=== PATIENT | female | born 1975 | race Caucasian/White ===

== ENCOUNTER → 2019-07-25 12:51 | Outpatient (CLI) | payer SELFPAY ==
[2019-07-25 14:34] LABS: Ferritin 10 ng/mL (8-252)
== END ==
PROVIDERS: Family Provider Family Medicine; PCP Family Medicine; Referring Provider Internal Medicine Pulmonary Disease; Visit Provider Internal Medicine Pulmonary Disease
DX: G25.81 Restless legs syndrome (principal); G47.10 Hypersomnia, unspecified
CPT/HCPCS: 36415; 82728

== ENCOUNTER → 2019-09-08 14:08 | Outpatient (CLI) | payer SELFPAY ==
--- NOTE | 2019-09-08 14:09 | RAD_ITS ---
STUDY: X-RAY - RIGHT KNEE REASON FOR EXAM: Female, 44 years old. FALL 5 WKS AGO, SWELLING AROUND PATELLA AREA TECHNIQUE: 3 view(s) of the knee. COMPARISON: None. FINDINGS: Normal visualized distal femur. Normal visualized proximal tibia and fibula. Normal proximal tibiofibular articulation. There is no demonstrated fracture. Normal medial femorotibial compartment. Normal lateral femorotibial compartment. Normal patellofemoral articulation. There is no demonstrated joint effusion. Tortuous soft tissue structures above the knee and at the level of posterior calf may indicate varices. Soft tissue swelling along the anterior knee. RAD/Knee 4 or More Views IMPRESSION: No acute fracture or subluxation. Soft tissue swelling along the anterior knee/patella. Electronically Signed: Amna Torres MD at 2:03 EST , Service support ,
== END ==
PROVIDERS: PCP Family Medicine; Referring Provider Physician Assistant; Visit Provider Physician Assistant
DX: M25.561 Pain in right knee (principal)
CPT/HCPCS: 73564

== ENCOUNTER → 2020-04-05 15:15 | Outpatient (CLI) | payer SELFPAY ==
[2020-04-05 15:59] LABS: Ferritin 11 ng/mL (8-252); Iron 106 ug/dL (50-170)
== END ==
PROVIDERS: PCP Family Medicine; Referring Provider Internal Medicine Pulmonary Disease; Visit Provider Internal Medicine Pulmonary Disease
DX: G25.81 Restless legs syndrome (principal); G47.10 Hypersomnia, unspecified
CPT/HCPCS: 36415; 82728; 83540

== ENCOUNTER → 2022-09-08 | Outpatient (CLI) | payer SELFPAY ==
[2022-09-08 11:41] LABS: Ferritin 30 ng/mL (8-252); Iron 108 ug/dL (50-170); Iron Binding Capacity,Total 291 ug/dL (250-450); PERCENT IRON SATURATION 37.1 % (15.0-55.0)
== END | disposition home or self-care (01) ==
PROVIDERS: PCP Family Medicine; Referring Provider Internal Medicine Pulmonary Disease; Visit Provider Internal Medicine Pulmonary Disease
DX: R53.83 Other fatigue (principal)
CPT/HCPCS: 36415; 82728; 83540; 83550

== ENCOUNTER → 2023-04-06 | Outpatient (CLI) | payer SELFPAY ==
[2023-04-06 14:10] LABS: Ferritin 88 ng/mL (8-252)
== END | disposition home or self-care (01) ==
PROVIDERS: PCP Family Medicine; Referring Provider Internal Medicine Pulmonary Disease; Visit Provider Internal Medicine Pulmonary Disease
DX: D50.9 Iron deficiency anemia, unspecified (principal); R15.0 Incomplete defecation; G25.81 Restless legs syndrome
CPT/HCPCS: 36415; 82728

== ENCOUNTER → 2024-10-18 | Outpatient (CLI) | payer SELFPAY ==
[2024-10-18 20:18] LABS: Amphetamine Urine NEGATIVE (<1000 ng/mL); Barbiturate Urine NEGATIVE (< 200 ng/mL); Benzodiazepine Urine NEGATIVE (< 200 ng/mL); Buprenorphine Urine NEGATIVE (< 200 ng/mL); Cocaine Urine NEGATIVE (< 300 ng/mL); Fentanyl, Urine NEGATIVE; Methadone Urine NEGATIVE (< 300 ng/mL); Opiates Urine NEGATIVE (< 300 ng/mL); Oxycodone, Urine NEGATIVE (< 100 ng/mL); PCP Urine NEGATIVE (< 25 ng/mL); THC Urine NEGATIVE (< 50 ng/mL)
== END | disposition home or self-care (01) ==
PROVIDERS: PCP Family Medicine; Referring Provider Internal Medicine Pulmonary Disease; Visit Provider Internal Medicine Pulmonary Disease
DX: G47.10 Hypersomnia, unspecified (principal)
CPT/HCPCS: 80307

== ENCOUNTER 2024-11-28 14:36 | Day surgery (SDC) | payer SELFPAY ==
[2024-11-28] VITALS (7 sets, daily range): BP systolic 106–118; BP diastolic 49–65; PULSE 57–99; RESP 16–18; TEMP 36.2–36.6; O2SAT 93–100; BMI 23.5
--- NOTE | 2024-11-28 14:54 | HP.PCM_ITS ---
HPI - General General Date of Admission: 12/13/24 Date of Service: 11/28/24 Chief Complaint: Heartburn HPI Narrative LUCIA GOVEA, is a 49 F who reports acid reflux for 10-15 years. Feels burning in throat when laying down at night. Also will have acid reflux when bending over. Does not have abdominal pain or burning. States she was dx with JAVNO 1-2 years ago and her cpap exacerbates her symptoms. Swallows alot of air and has intermittent bloating. Reports BM are usually normal but if she swallows too much air she will have loose stools with acid. Has tried OTC Famotidine but states it blocks her calcium absorption. Has been taking OTC supplements including sodium alginate that is somewhat helpful. Has never had scopes. OV 08.29.24 pt reports an improvement in symptoms since previous visit. Pt reports that her CPAP had been leaking and since getting this fixed her bloating has decreased. Pt reports that her nausea will come and go in streaks; pt wonders if this is due to a stomach bug or possibly stress. Pt reports occasion al difficulty swallowing with her pills. Wil, pt state that if she takes a deep breath she can feel liquid going into her lungs. [facility] Medical History Wears contact lenses Depression Anxiety Low iron Back pain Difficulty swallowing History of ulceration Gastric reflux Non-smoker CPAP (continuous positive airway pressure) dependence Cardiology follow-up encounter History of echocardiogram History of irregular heartbeat Acid reflux Restless leg syndrome Home Medications ?Medication ?Instructions ?Recorded ?Last Taken ?Type escitalopram oxalate 20 mg tablet 10 mg PO DAILY 05/29 Unknown History loratadine 10 mg tablet (Allergy 10 mg PO BID PRN jason rgy symptoms 05/29/20 Unknown History Relief (loratadine)) BEET ROOT 2 tab PO DAILY 11/24/24 Unkn own History REACTIVE IRON 29 mg PO DAILY 11/24/24 Unkn own History calcium carbonate (Calcium 600) 1,200 mg PO DAILY 11/09 01/03 Unknown History lysine 1,000 mg tablet 1,000 mg PO DAILY 11/24/24 U nknown History magnesium 200 mg tablet 400 mg PO DAILY 11/24/24 Unk nown History modafinil 100 mg tablet 100 mg PO DAILY PRN SLEEPINE SS 11/24/24 Unknown History multivitamin (Daily Multi-Vitamin 1 tab PO DAILY 11/24 Unknown History tablet) vit D3 50 mcg-vitamin K1 500 1 cap PO DAILY 11/24/24 Unknown History mcg-MK4 1,500 mcg-MK7 180 mcg capsule Allergy/AdvReac Type Severity Reaction Status Date / Time codeine (From Allergy Intermediate n/v, acid Verified 11/24/24 15:44 Tylenol-Codeine) reflux, feels funny adhesive tape Allergy Mild Rash Verified 11/24/24 15:44 Surgical History Hx of vaginal hysterectomy Hx of removal of cyst H/O dilation and curettage Social History Smoking Status: Never smoker alcohol intake: current alcohol intake frequency: a few times a week details: Homemade Ngozi [id number] Constitutional Constitutional: Denies fatigue, fever(s), poor appetite, weight gain or weight loss Gastrointestinal Gastrointestinal: Denies belching, bloating, change in bowel habits, change in stool character, chewing difficulty, coffee ground emesis, constipation, cramping, diarrhea, dyspepsia, dysphagia, early satiety, excessive flatus, fecal incontinence, heartburn, hematemesis, hematochezia, hemorrhoids, loose stools, melena, nausea, odynophagia, rectal bleeding, tenesmus, vomiting or weight changes Physical Exam Const alert, oriented x3, no apparent distress and healthy appearing General Appearance: cooperative GI normal to inspection, nondistended, normoactive bowel sounds, soft to palpation, non-tender and non-distended Percussion: normal to percussion Rectal Exam: deferred Assessment & Plan Assessment/Plan (1) Acid reflux: PLAN: Assessment and Plan Assessment and Plan (1) Gastroesophageal reflux disease: Plan: I went over the natural history of gastroesophageal reflux disease and what can happen with uncontrolled gastroesophageal reflux disease. She did not want to undergo medical therapy at this time because she is concerned that it will deplete her vitamins and minerals. The medical therapy I suggested was a proton pump inhibitor and if she had a very good symptom control with that then we could do that medical therapy and possibly check electrolytes and along with vitamins and minerals that she would be concerned about losing. Also discussed possible doing a swallow test including barium esophagram, manometry and video swallow. We also went over surgical correction of gastroesophageal reflux disease. She says she would think about her options and get back to me.
--- NOTE | 2024-11-28 15:05 | PRE.ANES_ITS ---
ASA Classification* ASA Classification ASA Classification: 2 Assessment & Plan Anesthesia* Anesthesia Assessment Anesthesia Assessment: Discussed sedation and/or anesthesia options, risks, benefits, and alternatives with patient/parents/legal guardian/POA. Questions invited. The patient/parents/legal guardian/POA seems to understand and agrees to proceed with anesthesia plan. Reviewed the physical assessment, medical history, allergy history and patient home medications list prior to surgery/procedure/anesthetic and documented any changes. Performed airway and anesthesia risk assessments. 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 When Was Last Pacemaker Check QUESTION #4 FULL TEXT: You/Your Family Experience fever (hyperthermia) with Anesthesia Last Oral Intake Last Oral intake: Last Oral Intake NPO since 10:30 11/28/24 15:01 Meds taken in AM with sips of water? Meds patient instructed to take am of surgery PONV PONV - landscape management technician: PONV - landscape management technician Female Yes 11/24/24 15:49 HX of Motion Sickness Yes 11/24/24 15:49 HX of N/V After Surgery No 11/24/24 15:49 Non-Smoker Yes 11/24/24 15:49 Duration of Surgery greater No 11/24/24 15:49 than 60 minutes Number of Risk Factors 3 11/24/24 15:49 PONV Score Moderate Risk 11/24/24 15:49 Height & Weight Height & Weight: Anesthesia: Height & Weight Height 5 ft 5.5 in 11/28/24 15:01 Weight: 65 kg 11/28/24 15:01 Body Mass Index (BMI) 23.5 11/28/24 15:01 Respiratory Assessment Respiratory Assessment - landscape management technician: Respiratory Tract Infection Hx - landscape management technician Hx Respiratory Tract Infection No 11/24/24 15:49 STOP Sleep Apnea STOP Sleep Apnea - landscape management technician: STOP Sleep Apnea - landscape management technician Hx Hypertension No 11/24/24 15:49 Hx Sleep Apnea Yes 11/24/24 15:49 CPAP Yes 11/24/24 15:49 BIPAP No 11/24/24 15:49 Do you snore loudly (louder than talking or can be heard Do you often feel tired/ fatigued/ sleepy during daytime? Has anyone observed you stop breathing during sleep? STOP Results Positive 11/24/24 15:49 QUESTION #5 FULL TEXT : Do you snore loudly (louder than talking or can be heard through closed doors)? Tobacco Use History Tobacco Use History - landscape management technician: Tobacco Use History - landscape management technician Tobacco Use Smoking Status Never smoker 11/24/24 15:49 Hx Tobacco Use No 11/24/24 15:49 Years Smoking Packs Smoked per Day Smoking Cessation Date was within the last 15 years Hx Smoking Cessation Date Hx Smoking Cessation Counseling Hematologic Medial History Hematologic Hx - landscape management technician: Hematologic Medical Hx - shop supervisor Hx of Blood Transfusion No 11/24/24 15:49 Hx of Transfusion in last 3 No 11/24/24 15:49 Months Date of Last Transfusion (if within last 3 months) Ever experience any problems No 11/24/24 15:49 with transfusion(s)? Specify any problems Hx of Preganancy in last 3 No 11/24/24 15:49 Months Nurse Filling Out Transfusion DSCHRIBER 11/24/24 15:49 & Questions: Date: 11/24/24 11/24/24 15:49 Time: 15:52 11/24/24 15:49 Patient unable to answer at this time (ie. confused, unrespo /Reproduction History /Reproductive History - landscape management technician: /Reproductive Hx- landscape management technician Hx Now No 11/24/24 15:49 Gestational Age (in weeks): EDC: Hx Hx Para Hx Section SAB No 11/24/24 15:49 Active Medications Active Medications: Current Medications Generic Name Dose Route Start Last Admin Trade Name Freq PRN Reason Stop Dose Admin Lactated Ringer's 1,000 mls @ 15 mls/hr 11/28/24 15:00 IV .Q48H JAZMIN PFSH Medical History Wears contact lenses Depression Anxiety Low iron Back pain Difficulty swallowing History of ulceration Gastric reflux Non-smoker CPAP (continuous positive airway pressure) dependence Cardiology follow-up encounter History of echocardiogram History of irregular heartbeat Acid reflux Restless leg syndrome Home Medications ?Medication ?Instructions ?Recorded ?Last Taken ?Type escitalopram oxalate 20 mg tablet 10 mg PO DAILY 05/2911/27/24 History loratadine 10 mg tablet (Allergy 10 mg PO BID PRN jason rgy symptoms 05/29/20 Unknown History Relief (loratadine)) BEET ROOT 2 tab PO DAILY 11/24/2411/09 History REACTIVE IRON 29 mg PO DAILY 11/24/2411/09 History calcium carbonate (Calcium 600) 1,200 mg PO DAILY 11/0911/27/24 History lysine 1,000 mg tablet 1,000 mg PO DAILY 11/24/24 0 11/27/24 History magnesium 200 mg tablet 400 mg PO DAILY 11/24/24 History modafinil 100 mg tablet 100 mg PO DAILY PRN SLEEPINE SS 11/24/24 11/27/24 History multivitamin (Daily Multi-Vitamin 1 tab PO DAILY 11/2411/27/24 History tablet) vit D3 50 mcg-vitamin K1 500 1 cap PO DAILY 11/24/24 11/27/24 History mcg-MK4 1,500 mcg-MK7 180 mcg capsule Allergy/AdvReac Type Severity Reaction Status Date / Time codeine (From Allergy Intermediate n/v, acid Verified 11/28/24 14:59 Tylenol-Codeine) reflux, feels funny adhesive tape Allergy Mild Rash Verified 11/28/24 14:59 Surgical History Hx of vaginal hysterectomy Hx of removal of cyst H/O dilation and curettage Social History Smoking Status: Never smoker alcohol intake: current alcohol intake frequency: a few times a week details: Homemade Kombucha Review of Systems (Anesthesia) ROS Narrative System reviewed and no additional complaints, except as documented.
[2024-11-28] MEDS: Lactated Ringers 1,000 ML 15 ML IV (15:09)
--- NOTE | 2024-11-28 15:45 | EGD_PTH ---
PATIENT: LUCIA GOVEA LOC: EN U#:[id number] AGE/SX: 49/F ROOM: RE11/28/[address]: Dr. Gabino Ceja DO : 1975 BED: DIS: 11/28/2024 SPEC #: [id number] RECD: 11/28/24 18:17 STATUS: DIMITRY REHector #: [id number] ANNELISE: 11/28/24 15:[address]: Gabino Ceja DEPT: SURGICAL PATHOLOGY RECD BY: Trace Avila ENTERED: 11/29/24 08:44 SP TYPE: EGD BIOPSY MADDIE DR: Dr. Azalea Steward MD Tissues: A - Esophagus, NOS B - Duodenum, NOS Procedures: Surgery Specimen Level IV HEADER OPERATION: EGD with biopsy PRE-OP DIAGNOSIS: Gastroesophageal reflux disease TISSUE SUBMITTED: A- Distal esophagus biopsy, B- Duodenum biopsy MICROSCOPIC DIAGNOSIS A. Esophagus, distal, biopsy: Squamous mucosa with reactive changes. Scant columnar mucosa negative for goblet cell metaplasia. B. Small bowel, duodenum, biopsy: Normal villous architecture with Adriel gland hyperplasia. Negative for increased intraepithelial lymphocytes. MICROSCOPIC DESCRIPTION Slides are reviewed. GROSS DESCRIPTION A. Received in formalin in a container labeled with the patient's name, date of , and distal esophagus biopsy is a 0.7 x 0.3 x 0.2 cm strip of taylor-pink mucosal tissue. Submitted in toto in A1. B. Received in formalin in a container labeled with the patient's name, date of , and duodenum biopsy are multiple taylor-pink fragments of mucosal tissue measuring 0.8 x 0.6 x 0.3 cm in aggregate. Submitted in toto in B1. [facility] 11-29-2024 CPT:24893n3
--- NOTE | 2024-11-28 16:21 | PCM.POST.ANE ---
Anesthesia: Postop Eval I Current Vital Signs Temperature: 97.8 F Pulse Rate: 97 Blood Pressure: 118/65 Respiratory Rate: 18 Pulse Ox: 97 Assessment Airway patent: Yes Spontaneous unlabored respirations: Yes nausea: No Vomiting: No Anesthesia Complication: No Fluid Hydration Crystalloid volume administer (ml): 100 Total IV fluid infused: 100 Progress Note Anesthesia document: Postop Eval 1 completed: Yes
--- NOTE | 2024-11-28 16:26 | OP.EGD_ITS ---
Patient Name: Yusra Barber Procedure Date: 11/28/2024 3:55 PM Date of : 1975 Age: 49 Procedure: Upper GI endoscopy Indications: Epigastric abdominal pain, Functional Dyspepsia, Heartburn, Suspected esophageal reflux Providers: Gabino Ceja DO Referring MD: Azalea Steward Medicines: Monitored Anesthesia Care Patient Profile: This is a 49 year old female. Refer to note in patient chart for documentation of history and physical. Patient has symptoms of chronic abdominal distention, chronic epigastric abdominal pain, chronic dyspepsia, chronic heartburn, chronic nausea and chronic throat burning. Complications: No immediate complications. Procedure: Pre-Anesthesia Assessment: - Prior to the procedure, a History and Physical was performed, and patient medications and allergies were reviewed. The patient is competent. The risks and benefits of the procedure and the sedation options and risks were discussed with the patient. All questions were answered and informed consent was obtained. Patient identification and proposed procedure were verified by the physician in the pre-procedure area. Mental Status Examination: alert and oriented. Airway Examination: normal oropharyngeal airway and neck mobility. Respiratory Examination: clear to auscultation. CV Examination: normal. Prophylactic Antibiotics: The patient does not require prophylactic antibiotics. Prior Anticoagulants: The patient has taken no anticoagulant or antiplatelet agents except for NSAID medication. ASA Grade Assessment: II - A patient with mild systemic disease. After reviewing the risks and benefits, the patient was deemed in satisfactory condition to undergo the procedure. The anesthesia plan was to use monitored anesthesia care (MAC). Immediately prior to administration of medications, the patient was re-assessed for adequacy to receive sedatives. The heart rate, respiratory rate, oxygen saturations, blood pressure, adequacy of pulmonary ventilation, and response to care were monitored throughout the procedure. The physical status of the patient was re-assessed after the procedure. After obtaining informed consent, the endoscope was passed under direct vision. Throughout the procedure, the patient's blood pressure, pulse, and oxygen saturations were monitored continuously. The Endoscope was introduced through the mouth, and advanced to the second part of duodenum. The upper GI endoscopy was accomplished without difficulty. The patient tolerated the procedure well. Scope In: 4:08:05 PM Scope Out: 4:13:18 PM Total Procedure Duration Time 0 hours 5 minutes 13 seconds Findings: LA Grade A (one or more mucosal breaks less than 5 mm, not extending between tops of 2 mucosal folds) esophagitis with no bleeding was found 34 to 39 cm from the incisors. Biopsies were taken with a cold forceps for histology. Verification of patient identification for the specimen was done. Estimated blood loss was minimal. Clear fluid was found in the entire examined stomach. Diffuse mildly erythematous mucosa without active bleeding and with no stigmata of bleeding was found in the duodenal bulb. Biopsies were taken with a cold forceps for histology. Verification of patient identification for the specimen was done. Estimated blood loss was minimal. Impression: - LA Grade A reflux esophagitis with no bleeding. Biopsied. - Clear gastric fluid. - Erythematous duodenopathy. Biopsied. Recommendation: - Discharge patient to home. - Resume previous diet. - Continue present medications. - Await pathology results. Procedure Code(s): --- Professional --- 37553, Esophagogastroduodenoscopy, flexible, transoral; with biopsy, single or multiple CPT copyright 2021 [employer]. All rights reserved. The codes documented in this report are preliminary and upon leno sewer review may be revised to meet current compliance requirements. Gabino Ceja DO 11/28/2024 4:25:54 PM This report has been signed electronically. Number of Addenda: 0 Note Initiated On: 11/28/2024 3:55 PM
--- NOTE | 2024-11-28 16:26 | OP.CCLET_ITS ---
11/28/2024 Azalea Setward [place] [id number] [place] [address] Re : Upper GI endoscopy procedure for Yusra Barber Dear Dr. Steward This procedure was performed on Thursday, November 28, 2024. My impressions and recommendations are as follows: Impressions : - LA Grade A reflux esophagitis with no bleeding. Biopsied. - Clear gastric fluid. - Erythematous duodenopathy. Biopsied. Recommendations : - Discharge patient to home. - Resume previous diet. - Continue present medications. - Await pathology results. My findings are described in the full procedure note, which is enclosed. If I can be of further assistance, please feel free to contact me at . Sincerely, Gabino Ceja, 11/28/2024 4:25:54 PM This report has been signed electronically.
--- NOTE | 2024-11-28 16:50 | POSTOPAN2_ITS ---
Anesthesia Postop Eval I Sum Postop Eval Completion status Anesthesia document: Postop Eval 1 completed: Yes Anesthesia Postop Eval I Summary Anesthesia Postop Eval I Summary: Anesthesia Postop Eval I: Assessment Summary Airway patent Yes 11/28/24 16:21 SAMPLE BOOK MAKER.CSIR Spontaneous unlabored Yes 11/28/24 16:21 SAMPLE BOOK MAKER.CSIR respirations Mental status nausea No 11/28/24 16:21 SAMPLE BOOK MAKER.CSIR Vomiting No 11/28/24 16:21 SAMPLE BOOK MAKER.CSIR Anesthesia Postop Eval I: Fluid Summary Crystalloid volume administer 100 11/28/24 16:21 SAMPLE BOOK MAKER.CSIR (ml) Colloids volume administered ( ml) Blood Product volume administered (ml) Total IV fluid infused 100 11/28/24 16:21 SAMPLE BOOK MAKER.CSIR Anesthesia Postop Eval I: Summary Notes Anesthesia Complication No 11/28/24 16:21 SAMPLE BOOK MAKER.CSIR Anesthesia Complication Comment: Post-operative progress note Anesthesia: Postop Eval II Evaluation Mental status: Awake Pain Level: 0 nausea: No Vomiting: No
--- NOTE | 2024-11-28 16:50 | PCM.POSTANE2 ---
Anesthesia Postop Eval I Sum Postop Eval Completion status Anesthesia document: Postop Eval 1 completed: Yes Anesthesia Postop Eval I Summary Anesthesia Postop Eval I Summary: Anesthesia Postop Eval I: Assessment Summary Airway patent Yes 11/28/24 16:21 PROTECTIVE SERVICES CASE WORKER.CSIR Spontaneous unlabored Yes 11/28/24 16:21 PROTECTIVE SERVICES CASE WORKER.CSIR respirations Mental status nausea No 11/28/24 16:21 PROTECTIVE SERVICES CASE WORKER.CSIR Vomiting No 11/28/24 16:21 PROTECTIVE SERVICES CASE WORKER.CSIR Anesthesia Postop Eval I: Fluid Summary Crystalloid volume administer 100 11/28/24 16:21 PROTECTIVE SERVICES CASE WORKER.CSIR (ml) Colloids volume administered ( ml) Blood Product volume administered (ml) Total IV fluid infused 100 11/28/24 16:21 PROTECTIVE SERVICES CASE WORKER.CSIR Anesthesia Postop Eval I: Summary Notes Anesthesia Complication No 11/28/24 16:21 PROTECTIVE SERVICES CASE WORKER.CSIR Anesthesia Complication Comment: Post-operative progress note Anesthesia: Postop Eval II Evaluation Mental status: Awake Pain Level: 0 nausea: No Vomiting: No
== END 2024-11-28 16:58 | disposition home or self-care (01) ==
LOC: EN 14:41 → AC 14:42
PROVIDERS: PCP Family Medicine; Referring Provider Family Medicine; Visit Provider Internal Medicine Gastroenterology
PROC: 0DJ08ZZ Inspection of Upper Intestinal Tract, Via Natural or Artificial Opening Endoscopic (ICD-10-PCS; CPT 43235; principal; 2024-11-28 15:40)
DX: K21.00 Gastro-esophageal reflux disease with esophagitis, without bleeding (principal); Z90.710 Acquired absence of both cervix and uterus; G47.33 Obstructive sleep apnea (adult) (pediatric); Z99.89 Dependence on other enabling machines and devices; F32.A Depression, unspecified; Z79.899 Other long term (current) drug therapy; F41.9 Anxiety disorder, unspecified
CPT/HCPCS: 43239; 88305; J2405